=== PATIENT | male | born 1980 | race Caucasian/White ===

== ENCOUNTER 2022-06-16 09:12 | Outpatient (CLI) | payer OTHER, SELFPAY ==
--- NOTE | ~2022-06-16 | XR_ITS ---
EXAMINATION: XR lumbar spine 6V w bending DATE: 06/16/2022 09:36 INDICATION: Left-sided low back pain. TECHNIQUE: 7 views of lumbar spine including flexion and extension views were obtained. COMPARISON: None. FINDINGS: There is 3 degrees levocurvature of lumbar spine. The spine is hypomobile with flexion and extension. Vertebral body heights are normal. There is moderately decreased disc height at L5-S1. The re is multilevel facet joint osteoarthritis, severe on the left at L2-L3. IMPRESSION: 1. Moderate lower lumbar spondylosis. Reviewed, dictated and finalized at location A.
== END 2022-06-16 09:13 | disposition home or self-care (01) ==
PROVIDERS: PCP Family Medicine; Visit Provider Family Medicine
DX: M47.896 Other spondylosis, lumbar region (principal)
CPT/HCPCS: 72114